=== PATIENT | female | born 1975 | race African-American/Black ===

== ENCOUNTER 2017-12-09 17:45 | Emergency (ER) | payer BC | END 2017-12-09 19:13 | disposition home or self-care (01) | LOC: ERS 17:45 | DX: Z53.21 Procedure and treatment not carried out due to patient leaving prior to being seen by health care provider (principal) ==

== ENCOUNTER 2018-02-06 14:40 | Outpatient (CLI) | payer BC | END 2018-02-06 14:41 | disposition home or self-care (01) | LOC: BICMAMMO 14:40 | PROVIDERS: ATTEND Obstetrics & Gynecology | DX: Z12.31 Encounter for screening mammogram for malignant neoplasm of breast (principal) | CPT/HCPCS: 77063; 77067 ==

== ENCOUNTER 2020-07-03 13:43 | Outpatient (CLI) | payer BC | END 2020-07-03 13:44 | disposition home or self-care (01) | LOC: BICMAMMO 13:43 | PROVIDERS: ATTEND Obstetrics & Gynecology | DX: Z12.31 Encounter for screening mammogram for malignant neoplasm of breast (principal) | CPT/HCPCS: 77063; 77067 ==